=== PATIENT | male | born 1975 | race Hispanic/Latino ===

== ENCOUNTER 2023-04-25 20:36 | Emergency (ER) | payer BC ==
[~2023-04-25] VITALS: Ht 167.6 cm; Wt 102.1 kg
[2023-04-25 20:39] VITALS: BP 175/106
[2023-04-25] MEDS ORDERED: LIDOCAINE HCL 1% 20 ML VIAL INJ SCH (21:00)
[2023-04-25] MEDS ORDERED: TETANUS/DIPHTHERIA TOXOID [ADULT] 0.5 ML VIAL IM ONE (21:30)
[2023-04-25] MEDS ORDERED: CEPH500B PO (21:38)
== END 2023-04-25 22:10 | disposition home or self-care (01) ==
LOC: EDH 20:36
DX: S51.812A Laceration without foreign body of left forearm, initial encounter (principal); I10 Essential (primary) hypertension; W26.0XXA Contact with knife, initial encounter; Y93.89 Activity, other specified; Y92.89 Other specified places as the place of occurrence of the external cause; Y99.8 Other external cause status
CPT/HCPCS: 12002; 90471; 90714